=== PATIENT | female | born 1970 | race Caucasian/White ===

== ENCOUNTER 2019-03-05 06:11 | Day surgery (SDC) | payer OTHER ==
[2019-03-05] MEDS ORDERED: Dexamethasone 4 MG/ML 5 ML MDV IVPUSH ONE (06:12)
[2019-03-05] MEDS ORDERED: Midazolam 1 MG/ML 2 ML SDV IV ONE ×2 (06:12)
[2019-03-05] MEDS ORDERED: Ketorolac 30 MG/ML SDV IVPUSH ONE (06:12)
[2019-03-05] MEDS ORDERED: Ropivacaine 0.5% 5 MG/ML 20 ML SDV INJECT ONE (06:12)
[2019-03-05] MEDS ORDERED: fentaNYL 100 MCG/2 ML SDV IV ONE (06:12)
[2019-03-05] MEDS ORDERED: Ondansetron 4 MG/2 ML SDV IVPUSH ONE (06:12)
[2019-03-05] MEDS ORDERED: Propofol 200 MG/20 ML SDV IV ONE (06:12)
[2019-03-05] MEDS ORDERED: Lactated Ringers 1,000 ML IV ONE (06:12)
[2019-03-05] MEDS ORDERED: Gabapentin 300 MG Cap PO ONE (06:15)
[2019-03-05] MEDS ORDERED: Acetaminophen 500 MG Tab PO ONE (06:15)
[2019-03-05] MEDS ORDERED: Scopolamine 1.5 MG Transdermal Patch TRDERM ONE (06:15)
[2019-03-05] MEDS: Lactated Ringers 1,000 ML IV SCH ×2 (07:40→14:43)
[2019-03-05] MEDS ORDERED: ceFAZolin 2 GM in Premix Bag 1 BAG IV ONE (08:00)
[2019-03-05] MEDS ORDERED: Ropivacaine 49.25 ML, Ketorolac 30 MG, EPINEPHrine 0.5 MG, cloNIDine 80 MCG, Sodium Chl... INJECT SCH ×5 (08:00)
[2019-03-05] MEDS ORDERED: Tranexamic Acid 3,000 MG, Sodium Chloride 0.9% 100 ML IRR ONE ×2 (09:00)
[2019-03-05] MEDS ORDERED: Docusate Sodium 100 MG Cap PO PRN (10:11)
[2019-03-05] MEDS ORDERED: Sennosides 8.6 MG Tab PO PRN (10:11)
[2019-03-05] MEDS ORDERED: Bisacodyl 5 MG Tab PO PRN (10:11)
[2019-03-05] MEDS ORDERED: Naloxone 0.4 MG/ML SDV IVPUSH PRN (10:11)
[2019-03-05] MEDS ORDERED: diphenhydrAMINE 50 MG/ML SDV IVPUSH PRN (10:11)
[2019-03-05] MEDS ORDERED: Zolpidem 5 MG Tab PO PRN (10:11)
[2019-03-05] MEDS ORDERED: Acetaminophen/oxyCODONE 325-5 MG Tab PO PRN (10:11)
[2019-03-05] MEDS ORDERED: traMADol 50 MG Tab PO PRN (10:11)
[2019-03-05] MEDS ORDERED: Magnesium Hydroxide 400 MG/5 ML Susp 30 ML Cup PO PRN (10:11)
[2019-03-05] MEDS ORDERED: Ondansetron 4 MG/2 ML SDV IVPUSH PRN (10:11)
[2019-03-05] MEDS ORDERED: ceFAZolin 1 GM Vial IVPUSH SCH (10:15)
--- NOTE | 2019-03-05 11:27 | OR ---
DATE OF OPERATION: 03/05/2019 SURGEON: Satnam Vazquez DO PREOPERATIVE DIAGNOSIS: Right knee primary osteoarthritis. POSTOPERATIVE DIAGNOSIS: Right knee primary osteoarthritis. PROCEDURE: Right knee total knee arthroplasty. WAGON DRIVER SALESPERSON: Ilana To NP. Nurse practitioner, Ilana To NP, played an essential role in assisting in this case, helping to position the patient, retract structures as needed, as well as suturing and cutting sutures as indicated. Her presence improved patient's safety and decreased operative time. ANESTHESIA: Saulo Bryant CRNA; spinal plus conscious sedation. FLUID: Lactated Ringer's solution. ESTIMATED BLOOD LOSS: 100 mL. COMPLICATIONS: None. SPECIMEN: None. DISCHARGE DISPOSITION: Stable to PACU. INSTRUMENTATION: DePuy Attune size 6 cemented tibial base fixed bearing baseplate; 38 mm polyethylene patella; size 6 right cemented cruciate-retaining femur; and size 6, 7 mm fixed bearing cruciate retaining polyethylene insert. HISTORY AND INDICATION FOR THE PROCEDURE: The patient was seen in the clinic. She had failed nonoperative treatment. Preoperative imaging confirmed the above- mentioned diagnosis. Risks and benefits of the procedure were explained to the patient. Informed consent was obtained. DETAILS OF PROCEDURE: The patient was seen preoperatively by myself with the Anesthesia staff in the preoperative holding area where the operative site was marked. She was brought to the operative suite by Anesthesia staff where spinal sedation plus conscious sedation was administered. Sterile Zhu was placed. A well-padded tourniquet was placed on the right thigh. The right lower extremity was then prepped and draped in a sterile manner. Time-out was called identifying the correct patient, correct procedure, and the correct site and that antibiotics had been within the appropriate period of time. The right lower extremity was exsanguinated. Tourniquet was raised to 250 mmHg and taken down at 1 hour during cementing. A midline incision was made 3 fingerbreadths proximal to the patella down to the level of the tibial tubercle. Bleeding was controlled with Bovie electrocautery. Gelpis were used for initial retraction. The medial parapatellar arthrotomy was then performed. A full synovectomy was performed using Bovie electrocautery. The medial and proximal tibia was visualized using Bovie electrocautery. The patella was then everted and held with a towel clip. Soft tissue around the patella was then removed. The knee was then flexed. A rongeur was placed under the patella for stability. Two free end-cuts were made in the patella. We then brought it back out into extension. This measured a 38 mm. I then drilled the 3 holes and placed my patella trial. At this point, I flexed the knee up again and then reamed the distal femur, placed my intramedullary guide for a 9 mm 5-degree valgus distal cut. This was pinned in place. The distal cut was made and the guide was then removed. The posterior condylar guide was then placed. This was just slightly under a 6. I pinned it in a 6 position. I then applied my Chamfer block and made my anterior, posterior, and Chamfer block cuts. I then removed this using an osteotome and Bovie electrocautery. We then anteriorized the tibia using a blunt Hohmann and 2 sharp Hohmann's to protect collateral ligaments. This was inline with the tibial tubercle in the 2nd metatarsal. This was used as stylus for a 3 mm proximal cut. This was pinned in place and then I did my proximal cut. I then used a laminar database architect and then took out some very small osteophytes posteriorly using a curved osteotome and then removed the remainder of the menisci bilaterally. I then again anteriorized my tibia and then placed a size 6 tibial baseplate, reamed it, and then used my keel punch to hold it in place. We then applied our femur. I did have to apply a block for my anterior extra Chamfer and then placed the femur in place and then made my lug holes and then placed my size 6, 5 mm tibial polyethylene trial. This provided good stability, but it was a little bit tight. I then re-cut the tibia and then this provided good range of motion. Then, I removed approximately another 7 mm and a half. After this had been accomplished, we removed all our components, copiously irrigated with saline, and then cemented my components in place with a size 6, 5 mm polyethylene trial. I then allowed the cement to dry. The tourniquet was let down at 60 minutes. I then copiously irrigated with saline and then removed some extra cement that was left around the joint and then visualized both posterior compartments. I then ranged this. I felt that there was a little bit of instability in mid range flexion, so I trialed up to a 7 and settled on a 7, so I inserted my final size 6, 7 mm polyethylene tibial insert. This provided excellent stability throughout range of motion. We then copiously irrigated again and then irrigated with Betadine-infused irrigation. I then closed my parapatellar arthrotomy with two #5 Ethibond interrupted sutures and then my banking assistant closed with #1 Stratafix and then irrigated again with Betadine-infused irrigation, then closed subcutaneously with #2 Stratafix, followed by skin elizabeth, followed by Betadine-soaked Adaptic, followed by sterile dressing and an Ricki wrap. The patient was allowed to awaken from conscious sedation and then taken to the PACU in stable condition for an adductor block. /[id number] 1120 BS/FRANCIS
--- NOTE | 2019-03-05 11:36 | PCM.SN ---
- Free Text/Narrative Note: ANESTHESIA ACUTE PAIN SERVICE Date: 03/05/2019 Time: 1043 to 1047 Preoperative Dx: Osteoarthritis Right Knee with Severe Pain Postoperative Rx: Right Total Knee Arthroplasty The surgeon requests a postoperative peripheral nerve block for postoperative pain control. I discussed with the patient and her boyfriend about doing a right leg Adductor Canal Nerve Block with Ultrasound [U/S] Guidance. Risks and benefits discussed including block failure or chronic needle insertion site pain. All their questions were answered fully. She wishes to proceed with the nerve block. A consent was signed. Procedure: Right Adductor Canal Nerve Block with U/S Guidance. Monitors: NIBP, ECG and Spo2 monitoring [see nursing notes for vital signs]. Sedation: She is having moderate panic attack requesting treatment. I "can't feel my legs" and "I am not in control". Versed 2 mg's given totally with good results. She was awake and orientated throughout this procedure. She is supine with her right leg in a Frog leg position. A preprocedure U/S scan was done locating the right Femoral Artery and the Sartorius Muscle above. The area was prepped with a Chlora-Prep swab X 1 and allowed to dry. Under direct U/S visualization, I inserted a 20 Ga. 4 In. Stimuplex Ultra 360 Echogenic Needle and advanced it to a very good position next to the artery. Again under direct U/S visualization, a total of 20 ml's of .5% Naropin in divided doses were given with frequent aspirations done for blood. The Sartorius Muscle dis tent up nicely. The patient had no complaints or local toxicity Sx noted. Documentation: Please see the images taken in the Pac system located in Radiology. Thank you for allowing anesthesia to help this patient. MESFIN Mitchell CRNA
[2019-03-05] MEDS: Acetaminophen 650 MG Tab.ER PO SCH ×3 (14:42→21:27)
--- NOTE | 2019-03-05 15:04 | CR ---
INDICATION: Postop TKA. RIGHT KNEE: Three images of the right knee were obtained in frontal and lateral projections post total knee arthroplasty, 03/05/19, and compared with preop study of 11/30/18, showing interval total knee arthroplasty with satisfactory position and alignment and no definite complicating process. Immediate postop study shows fluid and air fluid levels in the knee joint with overlying skin elizabeth present. A definite complicating process is not seen. MTDD
[2019-03-05] MEDS: ceFAZolin 2 GM in Premix Bag 1 BAG IV SCH (16:45)
[2019-03-05] MEDS: oxyCODONE 5 MG Tab PO PRN ×2 (16:49→21:26)
[2019-03-05] MEDS: Ketorolac 30 MG/ML SDV IVPUSH SCH (17:48)
[2019-03-05] MEDS: Gabapentin 300 MG Cap PO SCH ×2 (18:35→21:26)
[2019-03-05] MEDS: Sodium Chloride 0.9% 10 ML Syringe FLUSH PRN (20:15)
[2019-03-06] MEDS: ceFAZolin 2 GM in Premix Bag 1 BAG IV SCH ×2
[2019-03-06] MEDS: Sodium Chloride 0.9% 10 ML Syringe FLUSH PRN (00:35)
[2019-03-06] MEDS: Ketorolac 30 MG/ML SDV IVPUSH SCH (02:43)
[2019-03-06] MEDS: oxyCODONE 5 MG Tab PO PRN (02:49)
[2019-03-06] MEDS ORDERED: Pantoprazole 40 MG Tab.CR PO SCH (06:00)
[2019-03-06] MEDS: Acetaminophen 650 MG Tab.ER PO SCH ×2 (08:02→12:05)
--- NOTE | 2019-03-06 08:33 | US ---
INDICATION: Right adductor nerve block. ULTRASOUND RFA GUIDANCE: Multiple ultrasonic images were obtained 03/05/19 for guidance for RFA right adductor nerve block. [facility]
[2019-03-06] MEDS ORDERED: Hydrochlorothiazide 25 MG Tab PO SCH (09:00)
[2019-03-06] MEDS ORDERED: Aspirin 325 MG Tab.EC PO SCH (09:00)
[2019-03-06] MEDS ORDERED: Hydrochlorothiazide/Lisinopril 12.5-20 MG Tab PO SCH (09:00)
--- NOTE | 2019-03-06 09:37 | PCM.DCSUM1 ---
Discharge Summary - Hospital Course HPI Initial Comments: 48 yo female right knee primary oa Diagnosis: Stroke: No - Discharge Data Discharge Date: 03/06/19 Discharge Disposition: Home, Self-Care 01 Condition: Good - Patient Summary/Data Operative Procedure(s) Performed: r tka Complications: none Consults: Consultations 03/05/19 10:11 Respiratory Care Assess and Treatment [CONS] Routine Comment: Physician Instructions: Post-op Pneumonia Prevention 03/05/19 15:00 OT Evaluation and Treatment [CONS] Routine Please Evaluate and Treat. OT Reason for Consult: Strengthening This query below is only for informational purposes and is not editable. Admission Diagnosis/Problem: Osteoarthritis of right knee PT Evaluation and Treatment [CONS] Routine Please Evaluate and Treat. PT Reason for Consult: Strengthening This query below is only for informational purposes and is not editable. Admission Diagnosis/Problem: Osteoarthritis of right knee Recommended Follow-up Testing/Procedures: March 13 f/u in Clinic with Dr. Vazquez to discuss left medial compartment knee arthroplasty - Patient Instructions Diet: Usual Diet as Tolerated Activity: Apply Ice, As Tolerated, Full Weight Bearing, No Strenuous Activities Driving: Do Not Drive Showering/Bathing: May Shower Showering/Bathing, Other: may shower with or without dressing, cover at all other times Wound/Incision Care: Keep Operative Site/Wound Site Clean and Dry, Change Dressing Daily Notify Provider of: Fever, Increased Pain, Swelling and Redness, Drainage, Nausea and/or Vomiting - Discharge Plan *PRESCRIPTION DRUG MONITORING PROGRAM REVIEWED*: Yes *COPY OF PRESCRIPTION DRUG MONITORING REPORT IN PATIENT MARCY: No Prescriptions/Med Rec: Acetaminophen [Tylenol Arthritis Pain] 650 mg PO QID #56 tab.er Acetaminophen/oxyCODONE [Percocet 325-5 MG] 1 tab PO Q6H PRN #56 tablet PRN Reason: Pain (Moderate 4-6) Aspirin [Ecotrin EC] 325 mg PO DAILY #21 tab.ec Gabapentin [Neurontin] 300 mg PO TID #42 cap traMADol [Ultram] 100 mg PO Q6H PRN #56 tablet PRN Reason: Pain (Mild 1-3) Home Medications: Home Meds Glucos Sul 2Kcl/MSM/Chond/C/Mn [Glucosamine Chondroitin Cap] 1 cap PO DAILY 08/19 [History] Lisinopril/Hydrochlorothiazide [Zestoretic 20-12.5 mg Tablet] 1 tab PO DAILY 08/19 [History] Meloxicam [Mobic] 15 mg PO DAILY 03/01/19 [History] Ranitidine HCl [Zantac] 300 mg PO BEDTIME 03/01/19 [History] Soy Isofla/Blk Cohosh/Mag Bark [Estroven 155 mg Capsule] 1 cap PO DAILY [History] Multivitamin with Minerals [Multiple Vitamin] 1 tab PO DAILY 03/05/19 [History] hydroCHLOROthiazide [Hydrochlorothiazide] 25 mg PO DAILY 03/05/19 [History] Acetaminophen [Tylenol Arthritis Pain] 650 mg PO QID #56 tab.er 03/06/19 [Rx] Acetaminophen/oxyCODONE [Percocet 325-5 MG] 1 tab PO Q6H PRN #56 tablet [Rx] Aspirin [Ecotrin EC] 325 mg PO DAILY #21 tab.ec 03/06/19 [Rx] Gabapentin [Neurontin] 300 mg PO TID #42 cap 03/06/19 [Rx] traMADol [Ultram] 100 mg PO Q6H PRN #56 tablet 03/06/19 [Rx] - Discharge Summary/Plan Comment DC Time >30 min.: No - General Info Functional Status: Reports: Pain Controlled, Tolerating Diet, Ambulating, Urinating - Review of Systems General: Reports: No Symptoms HEENT: Reports: No Symptoms Pulmonary: Reports: No Symptoms Cardiovascular: Reports: No Symptoms Gastrointestinal: Reports: No Symptoms Genitourinary: Reports: No Symptoms Musculoskeletal: Reports: Leg Pain, Joint Pain, Joint Swelling Skin: Reports: No Symptoms Neurological: Reports: No Symptoms Psychiatric: Reports: No Symptoms - Patient Data Vitals - Most Recent: Last Vital Signs Temp 98.4 F 03/05/19 20:00 Pulse 71 03/05/19 20:00 Resp 16 03/05/19 20:00 BP 141/83 H 03/06/19 08:08 Pulse Ox 99 03/05/19 20:00 Weight - Most Recent: 183 lb I&O - Last 24 hours: Intake & Output 03/05/19 03/06/19 03/06/19 22:59 06:59 14:59 Intake Total 2198 50 Output Total 925 Balance 1273 50 Lab Results - Last 24 hrs: Laboratory Results - last 24 hr 08/06/19 08/06/19 Range/Units 06:20 06:20 WBC 15.8 H (4.5-12.0) X10-3/uL RBC 3.37 (3.23-5.20) x10(6)uL Hgb 11.9 (11.5-15.5) g/dL Hct 34.4 (30.0-51.3) % MCV 102.2 H (80-96) fL MCH 35.3 H (27.7-33.6) pg MCHC 34.6 (32.2-35.4) g/dL RDW 12.8 (11.5-15.5) % Plt Count 147 (125-369) X10(3)uL MPV 9.7 (7.4-10.4) fL Add Manual Diff Yes Neutrophils % (Manual) 85 H (46-82) % Lymphocytes % (Manual) 12 L (13-37) % Monocytes % (Manual) 3 L (4-12) % Macrocytosis Few Sodium 139 (135-145) mmol/L Potassium 4.2 (3.5-5.3) mmol/L Chloride 103 (100-110) mmol/L Carbon Dioxide 29 (21-32) mmol/L BUN 13 (7-18) mg/dL Creatinine 0.7 (0.55-1.02) mg/dL Est Cr Clr Drug Dosing 96.99 mL/min Estimated GFR (MDRD) > 60 (>60) BUN/Creatinine Ratio 18.6 (9-20) Glucose 116 (80-116) mg/dL Calcium 8.6 (8.6-10.2) mg/dL Total Bilirubin 0.4 (0.1-1.3) mg/dL AST 63 H (5-25) IU/L ALT 89 H (12-36) U/L Alkaline Phosphatase 146 H (56-112) IU/L Total Protein 6.3 (6.0-8.0) g/dL Albumin 3.0 L (3.5-5.2) g/dL Globulin 3.3 g/dL Albumin/Globulin Ratio 0.9 Med Orders - Current: Current Medications Acetaminophen (Tylenol Arthritis Pain) 650 mg PO QID [facility] Last Admin: 03/06/19 08:02 Dose: 650 mg Aspirin (Ecotrin) 325 mg PO DAILY [facility] Last Admin: 03/06/19 08:02 Dose: 325 mg Bisacodyl (Dulcolax) 10 mg PO DAILY PRN PRN Reason: Constipation Ropivacaine 49.25 ml/Ketorolac Tromethamine 30 mg/Epinephrine HCl 0.5 mg/ Clonidine HCl 80 mcg/ Sodium Chloride 48.45 ml 0 ml INJECT ASDIRECTED [facility] Last Admin: 03/05/19 09:22 Dose: 100 syringe Diphenhydramine HCl (Benadryl) 25 mg IVPUSH Q4H PRN PRN Reason: Itching Docusate Sodium (Colace) 100 mg PO BID PRN PRN Reason: Constipation Gabapentin (Neurontin) 300 mg PO QID [facility] Last Admin: 03/05/19 21:26 Dose: 300 mg Lisinopril/HCTZ (Lisinopril/Hctz 20-12.5 Mg) 1 tab PO DAILY [facility] Last Admin: 03/06/19 08:08 Dose: 1 tab Lactated Ringer's (Ringers, Lactated) 1,000 mls @ 125 mls/hr IV ASDIRECTED [facility] Last Admin: 03/05/19 14:43 Dose: 125 mls/hr Magnesium Hydroxide (Milk Of Magnesia) 30 ml PO BID PRN PRN Reason: Constipation Meperidine HCl (Meperitab) 50 mg PO QID [facility] Last Admin: 03/06/19 08:31 Dose: 50 mg Naloxone HCl (Narcan) 0.1 mg IVPUSH ONETIME PRN PRN Reason: Oversedation Ondansetron HCl (Zofran) 4 mg IVPUSH Q4H PRN PRN Reason: Nausea/Vomiting Oxycodone HCl (Oxycodone) 5 mg PO Q4H PRN PRN Reason: SEVERE PAIN Last Admin: 03/06/19 02:49 Dose: 5 mg Oxycodone/Acetaminophen (Percocet 325-5 Mg) 1 tab PO Q6H PRN PRN Reason: Pain (moderate 4-6) Last Admin: 03/06/19 08:00 Dose: 1 tab Pantoprazole Sodium (Protonix) 40 mg PO 0600 [facility] Last Admin: 03/06/19 05:53 Dose: 40 mg Senna (Senna) 8.6 mg PO BID PRN PRN Reason: Constipation Sodium Chloride (Saline Flush) 10 ml FLUSH ASDIRECTED PRN PRN Reason: Keep Vein Open Last Admin: 03/06/19 00:35 Dose: 10 ml Tramadol HCl (Ultram) 100 mg PO Q6H PRN PRN Reason: Pain (mild 1-3) Zolpidem Tartrate (Ambien) 5 mg PO BEDTIME PRN PRN Reason: Sleep Discontinued Medications Acetaminophen (Tylenol Extra Strength) 1,000 mg PO ONETIME ONE Stop: 03/05/19 06:16 Last Admin: 03/05/19 07:05 Dose: 1,000 mg Tranexamic Acid 3,000 mg/ (Sodium Chloride 100 ml) 0 mg IRR ONETIME ONE Stop: 03/05/19 09:01 Last Admin: 03/05/19 09:22 Dose: 100 syringe Gabapentin (Neurontin) 300 mg PO ONETIME ONE Stop: 03/05/19 06:16 Last Admin: 03/05/19 07:05 Dose: 300 mg Hydrochlorothiazide (Hydrochlorothiazide) 25 mg PO DAILY [facility] Cefazolin Sodium/Dextrose 2 gm (/ Premix) 50 mls @ 100 mls/hr IV ONETIME ONE Stop: 03/05/19 08:29 Last Admin: 03/05/19 07:56 Dose: 100 mls/hr Cefazolin Sodium/Dextrose 2 gm (/ Premix) 50 mls @ 100 mls/hr IV Q8H [facility] Stop: 03/06/19 00:29 Last Admin: 03/06/19 00:00 Dose: 100 mls/hr Ketorolac Tromethamine (Toradol) 30 mg IVPUSH Q8H [facility] Stop: 03/06/19 02:01 Last Admin: 03/06/19 02:43 Dose: 30 mg Scopolamine (Transderm-Scop) 1.5 mg TRDERM ONETIME ONE Stop: 03/05/19 06:16 Last Admin: 03/05/19 07:09 Dose: 1.5 mg - Exam General: Reports: Alert, Oriented, Cooperative, No Acute Distress HEENT: Reports: Pupils Equal, Pupils Reactive, EOMI, Mucous Membr. Moist/[place] Neck: Reports: Supple, Trachea Midline Lungs: Reports: Normal Respiratory Effort GI/Abdominal Exam: No Distention Extremities: Joint Swelling, Leg Pain, Limited Range of Motion Skin: Reports: Warm, Dry, Intact Wound/Incisions: Reports: Healing Well, Dressing Dry and Intact, Drainage Neurological: Reports: No New Focal Deficit Psy/Mental Status: Reports: Alert, Normal Affect, Normal Mood Physical Findings Comments:: dressing had significant drainage. was reinforced. changed this morning. if decreased drainage with change to aquacell Discharge Operative/Procedures - Procedures Performed Operations: r tka LP Indication: CSF analysis Arterial Line Indication: hemodynamic monitoring Chest Tube Indication: pneumothorax Thoracentesis Indication: pleural effusion Paracentesis Indication: ascites
[2019-03-06] MEDS: Gabapentin 300 MG Cap PO SCH ×2 (09:43→12:09)
--- NOTE | 2019-03-06 15:42 | CR ---
INDICATION: Left knee pain. LEFT KNEE: Five views of the left knee were obtained 03/06/19 and were compared with 12/19/18. These included an upright view of both knees AP. A recent total knee arthroplasty is noted on the right, which appears to be unremarkable. Severe narrowing of the medial femorotibial joint space is noted on the left with mild hypertrophic degenerative changes at the intercondylar spines. Varus/valgus views obtained showed widening of the medial femorotibial joint space, compared with the upright view. Hypertrophic changes at the patellofemoral joint are mild with the joint space appearing to be slightly narrowed laterally. IMPRESSION: Osteoarthritis left knee with significant medial femorotibial joint space loss. MTDD
--- NOTE | 2019-03-12 10:52 | PCM.OPNOTE ---
- General Post-Op/Procedure Note Date of Surgery/Procedure: 03/05/19 Operative Procedure(s): r tka Pre Op Diagnosis: r knee primary oa Post-Op Diagnosis: Same Anesthesia Technique: Combo Spinal/Epidural, Regional Block Primary Surgeon: Satnam Vazquez Anesthesia Provider: Saulo Bryant Casing Crew Pusher: Ilana To EBL in mLs: 100 Complications: None Condition: Good
== END 2019-03-06 12:36 | disposition home or self-care (01) ==
LOC: FB.SDS 06:11 → FB.MS 11:03 → FB.SDS 03-06 12:36
PROVIDERS: ATTEND Orthopaedic Surgery
DX: M17.0 Bilateral primary osteoarthritis of knee (principal); I10 Essential (primary) hypertension; E78.5 Hyperlipidemia, unspecified; K21.9 Gastro-esophageal reflux disease without esophagitis; F17.210 Nicotine dependence, cigarettes, uncomplicated; Z88.5 Allergy status to narcotic agent; Z79.1 Long term (current) use of non-steroidal anti-inflammatories (NSAID); Z79.82 Long term (current) use of aspirin; Z79.899 Other long term (current) drug therapy
CPT/HCPCS: 27447; 36415; 73560; 73564; 80053; 85025; 86850; 86900; 86901; 94150; 97110; 97116; 97161; A9270; C1713; C1776; J0171; J0690; J0735; J1100; J1885; J2001; J2250; J2405; J2704; J2795; J3010; J7030; J7050; J7120

== ENCOUNTER 2019-04-23 06:49 | Day surgery (SDC) | payer OTHER ==
[~2019-04-23 06:49] MED LIST: Acetaminophen 500 MG Tab PO ONE; Gabapentin 300 MG Cap PO ONE; LORazepam 1 MG Tab PO ONE; Lactated Ringers 1,000 ML IV SCH; Ropivacaine 49.25 ML, Ketorolac 30 MG, EPINEPHrine 0.5 MG, cloNIDine 80 MCG, Sodium Chl... INJECT SCH; Scopolamine 1.5 MG Transdermal Patch TOP ONE; Sodium Chloride 0.9% 10 ML Syringe FLUSH PRN; Tranexamic Acid 3,000 MG, Sodium Chloride 0.9% 100 ML IRR ONE; ceFAZolin 2 GM in Premix Bag 1 BAG IV ONE
[2019-04-23] MEDS ORDERED: Ketorolac 30 MG/ML SDV IVPUSH ONE (06:50)
[2019-04-23] MEDS ORDERED: Propofol 200 MG/20 ML SDV IV ONE (06:50)
[2019-04-23] MEDS ORDERED: Lidocaine 2% 100 MG/5 ML Syringe IVPUSH ONE (06:50)
[2019-04-23] MEDS ORDERED: Phenylephrine 1% 10 MG/ML SDV IV ONE (06:50)
[2019-04-23] MEDS ORDERED: Midazolam 1 MG/ML 2 ML SDV IV ONE (06:50)
[2019-04-23] MEDS ORDERED: ePHEDrine 50 MG/ML SDV IV ONE (06:50)
[2019-04-23] MEDS ORDERED: Ropivacaine 0.5% 5 MG/ML 20 ML SDV ONE (06:50)
[2019-04-23] MEDS ORDERED: Ondansetron 4 MG/2 ML SDV IVPUSH ONE (06:50)
[2019-04-23] MEDS ORDERED: Bupivacaine 0.75%/D5W 2 ML Amp INJECT ONE (06:50)
[2019-04-23] MEDS ORDERED: Dexamethasone 4 MG/ML 5 ML MDV IVPUSH ONE (06:50)
[2019-04-23] MEDS ORDERED: fentaNYL 100 MCG/2 ML SDV IV ONE (06:50)
[2019-04-23] MEDS ORDERED: Lactated Ringers 1,000 ML IV ONE (06:50)
[2019-04-23] MEDS ORDERED: Acetaminophen 500 MG Tab PO ONE (07:30)
[2019-04-23] MEDS ORDERED: Scopolamine 1.5 MG Transdermal Patch TOP ONE (07:30)
[2019-04-23] MEDS ORDERED: Tranexamic Acid 3,000 MG, Sodium Chloride 0.9% 100 ML IRR ONE ×4 (07:30→09:00)
[2019-04-23] MEDS ORDERED: Lactated Ringers 1,000 ML IV SCH (07:30)
[2019-04-23] MEDS ORDERED: Gabapentin 300 MG Cap PO ONE (07:30)
[2019-04-23] MEDS ORDERED: Ropivacaine 49.25 ML, Ketorolac 30 MG, EPINEPHrine 0.5 MG, cloNIDine 80 MCG, Sodium Chl... INJECT SCH ×5 (07:30)
[2019-04-23] MEDS ORDERED: LORazepam 1 MG Tab PO ONE (07:30)
[2019-04-23] MEDS ORDERED: ceFAZolin 2 GM in Premix Bag 1 BAG IV ONE (08:45)
[2019-04-23] MEDS ORDERED: Magnesium Hydroxide 400 MG/5 ML Susp 30 ML Cup PO PRN (09:14)
[2019-04-23] MEDS ORDERED: Morphine 2 MG/ML Syringe IVPUSH PRN (09:14)
[2019-04-23] MEDS ORDERED: Zolpidem 5 MG Tab PO PRN (09:14)
[2019-04-23] MEDS ORDERED: diphenhydrAMINE 50 MG/ML SDV IVPUSH PRN (09:14)
[2019-04-23] MEDS ORDERED: Bisacodyl 5 MG Tab PO PRN (09:14)
[2019-04-23] MEDS ORDERED: traMADol 50 MG Tab PO PRN (09:14)
[2019-04-23] MEDS ORDERED: Naloxone 0.4 MG/ML SDV IVPUSH PRN (09:14)
[2019-04-23] MEDS ORDERED: Docusate Sodium 100 MG Cap PO PRN (09:14)
[2019-04-23] MEDS ORDERED: Ondansetron 4 MG/2 ML SDV IVPUSH PRN (09:14)
[2019-04-23] MEDS ORDERED: Sennosides 8.6 MG Tab PO PRN (09:14)
[2019-04-23] MEDS ORDERED: Vancomycin 1 GM SDV ONE (10:30)
--- NOTE | 2019-04-23 10:52 | PCM.OPNOTE ---
- General Post-Op/Procedure Note Date of Surgery/Procedure: 04/23/19 Operative Procedure(s): left tka Pre Op Diagnosis: left knee primary oa Post-Op Diagnosis: Same Anesthesia Technique: Epidural, Moderate Sedation Primary Surgeon: Satnam Vazquez Anesthesia Provider: Christiana Soto Internet Marketing Assistant: Ilana To EBL in mLs: 100 Complications: None Condition: Good
--- NOTE | 2019-04-23 12:45 | PCM.SN ---
- Free Text/Narrative Note: ANESTHESIA ACUTE PAIN SERVICE Date: 04/23/2019 Time: 1121 to 1128 Preprocedure Dx: Left Knee Primary Osteoarthritis Postprocedure Rx: Left TKA I was requested by Dr. Tremaine Vazquez D.O. for post-operative pain control for this patient. Procedure: Left Adductor Canal Nerve Block with Ultrasound [U/S] Guidance in PACU. Risks and benefits were discussed with the patient who is wanting this nerve block. All her questions were answered completely including block failure. She signed the consent. Monitors in PACU: NIBP, SpO2, ECG and nasal cannula O2. Please see the nursing notes for her vital signs. Sedation: sedated from the surgery but easily aroused. She slept throughout the this procedure but easily aroused and orientated when asked. She is supine with her left leg placed in a Frog-leg position. A preprocedure scan was done locating, under direct U/S visualization, the left Femoral Artery / Vein and the Sartorius Muscle easily. Using aseptic technique, the area was prepped widely with a Chlora-Prep Sponge X 1 and allowed to dry. With direct U/ S visualization, I inserted and advanced to a proper placement a 20 Ga. 4 In Stimuplex Ultra 360 Echogenic Needle. The injection of 20 ml's of .5% Naropin Plain was done with multiple aspirations for blood [negative]. I could see the local anesthetic spread with the tenting of the Sartorius muscle under U/S with no complaints by the patient or complications. She tolerated this well. Documentation: Please find the U/S images taken in Radiology's PAC System. Thank you for using this service. Saulo Bryant CRNA, MSN
[2019-04-23] MEDS: Gabapentin 300 MG Cap PO SCH ×2 (14:15→20:43)
[2019-04-23] MEDS: Acetaminophen 325 MG Tab PO SCH ×2 (14:18→20:42)
--- NOTE | 2019-04-23 15:38 | OR ---
DATE OF OPERATION: 04/23/2019 SURGEON: Satnam Vazquez DO PREOPERATIVE DIAGNOSIS: Left knee primary osteoarthritis. POSTOPERATIVE DIAGNOSIS: Left knee primary osteoarthritis. PROCEDURE: Left knee total knee arthroplasty. TOWER TRUCK DRIVER: Ilana To NP Nurse practitioner, Ilana To NP, played an essential role in assisting in this case, helping to position the patient, retract structures as needed, as well as suturing and cutting sutures as indicated. Her presence improved patient's safety and decreased operative time. ANESTHESIA: Christiana Soto CRNA. Spinal plus conscious sedation. FLUIDS: Lactated Ringer's solution. ESTIMATED BLOOD LOSS: 100 mL. COMPLICATIONS: None. SPECIMEN: None. DISCHARGE DISPOSITION: Stable to PACU. INSTRUMENTATION: DePuy Attune size 7 left cruciate-retaining femur, size 7, 7- mm fixed-bearing cruciate retaining poly, size 6 cemented tibia baseplate, and 41-mm polyethylene medialized patellar dome. HISTORY AND INDICATION FOR PROCEDURE: The patient is well known to me. We performed a right total knee on her previously. She was continuing to have pain in her left knee. Preoperative imaging confirmed the above-mentioned diagnosis. Risks and benefits of the procedure were explained to the patient. Informed consent was obtained. DETAILS OF PROCEDURE: The patient was seen preoperatively by myself and the Anesthesia staff in the preop holding area where the operative site was marked. She was brought to the operative suite by Anesthesia staff where spinal sedation was administered plus conscious sedation. The left lower extremity had a well- padded tourniquet placed on the thigh. A sterile Zhu catheter was placed. The left lower extremity was then prepped and draped in a sterile manner. Time- out was called identifying the correct patient, correct procedure, correct site, and the antibiotics had been within the appropriate period of time. The left lower extremity was exsanguinated. Tourniquet was raised to 250 mmHg for 47 minutes and let down after cementing. The midline incision was made from the tibial tubercle approximately 4 fingerbreadths proximal to the patella, carried down to the deep fascia. The medial parapatellar arthrotomy was then made with a 10 blade. I brought the knee out in extension and then performed a full synovectomy. There was extensive synovitis present throughout the joint. I did remove the anterior portion of the medial and lateral meniscus as much as I could. I then everted the patella with a towel clip and then flexed the knee. I then took off whatever soft tissue around the patella I could with Bovie electrocautery. I then made 2 perpendicular cuts freehand with a saw on the patella. This was to the appropriate depth. I then measured a 41 and then drilled the holes for the trial and then placed the trial. I then flexed the knee and then used a rongeur to expose the notch. I then reamed the notch approximately 1 cm anterior to its anterior point and then placed my intramedullary distal femoral guide at 9 mm distal cut, 5-degree valgus. I pinned this in place and then removed my intramedullary portion of the guide and then sawed the distal femur. I then removed my guide and pins and then removed the anterior cruciate ligament as well as some more meniscus, and then used my posterior condylar guide at 3-degree valgus on the femur to pin this in place. This measured a 7. I placed the 2 pins from my chamfer block. I removed the guide and then placed my chamfer block and protected the collateral ligaments with sharp Hohmanns and then made my anterior and posterior and chamfer cuts. I then removed my guide and then took off the remainder of the bone and cleaned up the edges. At that point in time, I then placed my medial and lateral Hohmanns and then used a blunt Hohmann to anteriorize the tibia. I then used my extramedullary tibial guide in line with the tibial tubercle in the 2nd metatarsal with a 3-mm guide that was placed in the medial compartment of the tibia. I pinned this in place with 3 pins and then made my saw cut protecting soft tissues with the Hohmanns. I then removed my guide and then removed the proximal tibial cut with Bovie electrocautery and a rongeur. I then cleaned this up with some saw cuts. I then at that point used my sulcus guide and then cleaned up the anterior portion from the patellar tracking mechanism with a file. I then removed that guide and then placed a laminar product promoter sales person with the knee in flexion and then removed the remainder of the medial and lateral meniscus. I removed some more soft tissue from the notch. I removed some more synovitis from the posterior capsule. I also noticed that this was extremely tight in the lateral compartment and then freed that up by just a few mm off the posterior condyle. No posterior osteophytes were felt at that time. I then anteriorized the tibia again with a blunt Hohmann and protected the lateral and medial collateral ligaments with sharp Hohmanns and then placed my tibia which was a size 6. This was inline with the tibial tubercle of the 2nd metatarsal. I then tamped my tower down and then reamed and then placed my tamp down to seat the tibial plate. I then removed my radiation oncology therapist and then placed my femoral trial. I drilled the lugs for that. I inserted a size 7, 5-mm which appeared a little loose, so I inserted a size 7, 7-mm which provided excellent stability throughout range of motion without hyperextension. I chose those components and then removed all the components, copiously irrigated with saline, and then dried it with a towel with a clean lap. We then cemented our final components in place. I kept the knee in extension and internal rotation by placing the handle of my mallet underneath the lateral aspect of the foot fajardo. I then let the components dry and took the tourniquet down to 47 minutes. We then removed my tibial size 7, 7-mm tibial insert which was a trial and I chose that component. I then removed any extra cement. I took the appropriate amount of time looking in the medial and lateral compartments for any extra cement. I took a little bit of extra cement off the femur and tibia using a small sharp osteotome. We copiously irrigated with saline several times. I did place tranexamic acid in the joint when I was letting the cement dry. I then irrigated again and then placed my final 7-mm, size 7 polyethylene tibial insert. This provided excellent stability throughout range of motion. I then irrigated with Betadine- infused irrigation. I did notice a bleeder on the medial side which was very slow. I cauterized this, it continued to bleed, so I placed FloSeal which stopped the oozing. I then irrigated again with Betadine-infused irrigation, suctioned that out, placed clean towels for the closure and then placed 0.5 g of vancomycin powder inside the joint. We then closed the arthrotomy with 2 figure- of-eight #5 Ethibonds proximal and distal to the patella and then closed with the #1 Ethibond in a watertight manner for the parapatellar arthrotomy. We then irrigated again with Betadine-infused irrigation. Then placed the other 0.5 g of vancomycin over the deep fascia and then closed with a #2 Stratafix. We then closed with skin elizabeth and then placed a sterile dressing. The patient was then allowed to awaken from conscious sedation and taken to the PACU in stable condition. /[id number] BS/MODL
[2019-04-23] MEDS: Acetaminophen/oxyCODONE 325-5 MG Tab PO PRN ×2 (17:13→21:02)
[2019-04-23] MEDS: ceFAZolin 2 GM in Premix Bag 1 BAG IV SCH (17:22)
[2019-04-23] MEDS: Ketorolac 30 MG/ML SDV IVPUSH SCH (18:26)
[2019-04-23] MEDS: Sodium Chloride 0.9% 10 ML Syringe FLUSH PRN (18:31)
[2019-04-23] MEDS: oxyCODONE 5 MG Tab PO PRN (23:39)
[2019-04-24] MEDS: ceFAZolin 2 GM in Premix Bag 1 BAG IV SCH (01:11)
[2019-04-24] MEDS: Sodium Chloride 0.9% 10 ML Syringe FLUSH PRN (01:16)
[2019-04-24] MEDS: Acetaminophen 325 MG Tab PO SCH ×2 (01:51→08:47)
[2019-04-24] MEDS: Ketorolac 30 MG/ML SDV IVPUSH SCH (01:59)
[2019-04-24] MEDS: Acetaminophen/oxyCODONE 325-5 MG Tab PO PRN ×2 (05:23→10:26)
[2019-04-24] MEDS: Diazepam 2 MG Tab PO PRN ×2 (05:24→12:56)
[2019-04-24] MEDS ORDERED: Pantoprazole 40 MG Tab.CR PO SCH (06:00)
[2019-04-24] MEDS: oxyCODONE 5 MG Tab PO PRN (08:48)
[2019-04-24] MEDS: Gabapentin 300 MG Cap PO SCH (08:53)
[2019-04-24] MEDS ORDERED: Aspirin 325 MG Tab.EC PO SCH (09:00)
[2019-04-24] MEDS ORDERED: Hydrochlorothiazide 25 MG Tab PO SCH (09:00)
--- NOTE | 2019-04-24 10:34 | PCM.DCSUM1 ---
Discharge Summary - Hospital Course HPI Initial Comments: 48 yo female left knee primary oa Diagnosis: Stroke: No - Discharge Data Discharge Date: 04/24/19 Discharge Disposition: Home, Self-Care 01 Condition: Good - Referral to Home Health Primary Care Physician: Jody Arellano NP - Discharge Diagnosis/Problem(s) (1) Primary osteoarthritis of left knee SNOMED Code(s): 128912393818876, [id number] ICD Code: M17.12 - UNILATERAL PRIMARY OSTEOARTHRITIS, LEFT KNEE Status: Acute Current Visit: Yes - Patient Summary/Data Operative Procedure(s) Performed: left tka Complications: none Consults: Consultations 04/23/19 09:14 Respiratory Care Assess and Treatment [CONS] Routine Comment: Physician Instructions: Post-op Pneumonia Prevention 04/23/19 15:00 OT Evaluation and Treatment [CONS] Routine Please Evaluate and Treat. OT Reason for Consult: Strengthening This query below is only for informational purposes and is not editable. Admission Diagnosis/Problem: Knee joint operation PT Evaluation and Treatment [CONS] Routine Please Evaluate and Treat. PT Reason for Consult: Strengthening This query below is only for informational purposes and is not editable. Admission Diagnosis/Problem: Knee joint operation - Patient Instructions Diet: Usual Diet as Tolerated Activity: Apply Ice, Full Weight Bearing, No Strenuous Activities Driving: May Drive Today Showering/Bathing: May Shower Wound/Incision Care: Keep Operative Site/Wound Site Clean and Dry Wound/Incision, Other: change dressing Tuesday, then daily dressing change Notify Provider of: Fever, Increased Pain, Swelling and Redness, Drainage, Nausea and/or Vomiting - Discharge Plan *PRESCRIPTION DRUG MONITORING PROGRAM REVIEWED*: Yes *COPY OF PRESCRIPTION DRUG MONITORING REPORT IN PATIENT MARCY: No Prescriptions/Med Rec: Acetaminophen [Tylenol] 325 mg PO Q6H 7 Days #28 tablet Acetaminophen/oxyCODONE [Percocet 325-5 MG] 1 tab PO Q4H PRN #42 tablet PRN Reason: Pain (Moderate 4-6) Aspirin [Ecotrin EC] 325 mg PO DAILY #21 tab.ec diazePAM [Valium] 2 mg PO TID #9 tablet hydrOXYzine pamoate [Vistaril] 25 mg PO Q8H PRN #21 cap PRN Reason: Pain oxyCODONE 5 mg PO Q6H PRN #20 tablet PRN Reason: moderate pain Home Medications: Home Meds Ranitidine HCl [Zantac] 300 mg PO DAILY 03/01/19 [History] Gabapentin [Neurontin] 300 mg PO TID 04/09/19 [History] Meloxicam [Mobic] 15 mg PO DAILY 04/09/19 [History] Acetaminophen/oxyCODONE [Percocet 325-5 MG] 1 tab PO Q4H PRN 04/23/19 [History] Multivitamin [Daily Shin] 1 tab PO DAILY 04/23/19 [History] Vitamin E 1,000 unit PO DAILY 04/23/19 [History] hydrOXYzine HCl [hydrOXYzine] 25 mg PO TID PRN 04/23/19 [History] hydroCHLOROthiazide [Hydrochlorothiazide] 25 mg PO DAILY 04/23/19 [History] Acetaminophen [Tylenol] 325 mg PO Q6H 7 Days #28 tablet 04/24/19 [Rx] Acetaminophen/oxyCODONE [Percocet 325-5 MG] 1 tab PO Q4H PRN #42 tablet [Rx] Aspirin [Ecotrin EC] 325 mg PO DAILY #21 tab.ec 04/24/19 [Rx] diazePAM [Valium] 2 mg PO TID #9 tablet 04/24/19 [Rx] hydrOXYzine pamoate [Vistaril] 25 mg PO Q8H PRN #21 cap 04/24/19 [Rx] oxyCODONE 5 mg PO Q6H PRN #20 tablet 04/24/19 [Rx] Patient Handouts: Fall Prevention in Hospitals, Adult, Venous Thromboembolism Prevention, Total Knee Replacement, Care After, Klif-se-[id number] Referrals: Satnam Vazquez DO [Physician] - - Discharge Summary/Plan Comment DC Time >30 min.: No - General Info Date of Service: 04/24/19 Functional Status: Reports: Tolerating Diet, Ambulating, Urinating, Incentive Spirometry - Review of Systems General: Reports: No Symptoms HEENT: Reports: No Symptoms Pulmonary: Reports: No Symptoms Cardiovascular: Reports: No Symptoms Gastrointestinal: Reports: No Symptoms Genitourinary: Reports: No Symptoms Musculoskeletal: Reports: Joint Pain, Joint Swelling Skin: Reports: No Symptoms Neurological: Reports: No Symptoms Psychiatric: Reports: No Symptoms - Patient Data Vitals - Most Recent: Last Vital Signs Temp 97.6 F 04/24/19 07:30 Pulse 82 04/24/19 07:30 Resp 18 04/24/19 07:30 BP 133/81 04/24/19 07:30 Pulse Ox 97 04/24/19 07:30 Weight - Most Recent: 191 lb 9 oz I&O - Last 24 hours: Intake & Output 04/23/19 04/24/19 04/24/19 22:59 06:59 14:59 Intake Total 931 62 Output Total 800 550 300 Balance 131 -488 -300 Lab Results - Last 24 hrs: Laboratory Results - last 24 hr 04/24/19 04/24/19 Range/Units 06:10 06:10 WBC 13.5 H (4.5-12.0) X10-3/uL RBC 3.19 L (3.23-5.20) x10(6)uL Hgb 11.3 L (11.5-15.5) g/dL Hct 31.7 (30.0-51.3) % MCV 99.3 H (80-96) fL MCH 35.3 H (27.7-33.6) pg MCHC 35.5 H (32.2-35.4) g/dL RDW 12.7 (11.5-15.5) % Plt Count 159 (125-369) X10(3)uL MPV 9.4 (7.4-10.4) fL Neut % (Auto) 76.4 (46-82) % Lymph % (Auto) 18.3 (13-37) % [place] % (Auto) 5.1 (4-12) % Eos % (Auto) 0 L (1.0-5.0) % Baso % (Auto) 0 (0-2) % Neut # (Auto) 10.3 H (1.6-8.3) # Lymph # (Auto) 2.5 (0.6-5.0) # [place] # (Auto) 0.7 (0.0-1.3) # Eos # (Auto) 0.0 (0.0-0.8) # Baso # (Auto) 0.0 (0.0-0.2) # Sodium 136 (135-145) mmol/L Potassium 4.2 (3.5-5.3) mmol/L Chloride 101 (100-110) mmol/L Carbon Dioxide 27 (21-32) mmol/L BUN 16 (7-18) mg/dL Creatinine 0.6 (0.55-1.02) mg/dL Est Cr Clr Drug Dosing 113.16 mL/min Estimated GFR (MDRD) > 60 (>60) BUN/Creatinine Ratio 26.7 H (9-20) Glucose 109 (80-116) mg/dL Calcium 8.4 L (8.6-10.2) mg/dL Total Bilirubin 0.5 (0.1-1.3) mg/dL AST 48 H D (5-25) IU/L ALT 64 H D (12-36) U/L Alkaline Phosphatase 150 H (56-112) IU/L Total Protein 6.2 (6.0-8.0) g/dL Albumin 3.1 L (3.5-5.2) g/dL Globulin 3.1 g/dL Albumin/Globulin Ratio 1.0 Med Orders - Current: Current Medications Acetaminophen (Tylenol) 325 mg PO Q6H [facility] Last Admin: 04/24/19 08:47 Dose: 325 mg Aspirin (Ecotrin) 325 mg PO DAILY [facility] Last Admin: 04/24/19 08:48 Dose: 325 mg Bisacodyl (Dulcolax) 10 mg PO DAILY PRN PRN Reason: Constipation Ropivacaine 49.25 ml/Ketorolac Tromethamine 30 mg/Epinephrine HCl 0.5 mg/ Clonidine HCl 80 mcg/ Sodium Chloride 48.45 ml 0 ml INJECT ASDIRECTED [facility] Last Admin: 04/23/19 09:35 Dose: 100 syringe Diazepam (Valium) 2 mg PO QID PRN PRN Reason: Pain Last Admin: 04/24/19 05:24 Dose: 2 mg Diphenhydramine HCl (Benadryl) 25 mg IVPUSH Q4H PRN PRN Reason: Itching Docusate Sodium (Colace) 100 mg PO BID PRN PRN Reason: Constipation Gabapentin (Neurontin) 300 mg PO TID [facility] Last Admin: 04/24/19 08:53 Dose: 300 mg Hydrochlorothiazide (Hydrochlorothiazide) 25 mg PO DAILY [facility] Last Admin: 04/24/19 08:49 Dose: 25 mg Hydroxyzine Pamoate (Vistaril) 50 mg PO Q8H PRN PRN Reason: pain Last Admin: 04/23/19 23:40 Dose: 50 mg Lactated Ringer's (Ringers, Lactated) 1,000 mls @ 125 mls/hr IV ASDIRECTED [facility] Last Admin: 04/23/19 08:40 Dose: 125 mls/hr Magnesium Hydroxide (Milk Of Magnesia) 30 ml PO BID PRN PRN Reason: Constipation Morphine Sulfate (Morphine) 2 mg IVPUSH Q2H PRN PRN Reason: Breakthrough Pain Naloxone HCl (Narcan) 0.1 mg IVPUSH ONETIME PRN PRN Reason: Oversedation Ondansetron HCl (Zofran) 4 mg IVPUSH Q4H PRN PRN Reason: Nausea/Vomiting Oxycodone HCl (Oxycodone) 5 mg PO Q6H PRN PRN Reason: moderate pain Last Admin: 04/24/19 08:48 Dose: 5 mg Oxycodone/Acetaminophen (Percocet 325-5 Mg) 1 tab PO Q4H PRN PRN Reason: Pain (moderate 4-6) Last Admin: 04/24/19 10:26 Dose: 1 tab Pantoprazole Sodium (Protonix) 40 mg PO DAILY@0600 [facility] Last Admin: 04/24/19 05:08 Dose: 40 mg Senna (Senna) 8.6 mg PO BID PRN PRN Reason: Constipation Sodium Chloride (Saline Flush) 10 ml FLUSH ASDIRECTED PRN PRN Reason: Keep Vein Open Last Admin: 04/24/19 01:16 Dose: 10 ml Tramadol HCl (Ultram) 100 mg PO Q6H PRN PRN Reason: Pain (mild 1-3) Zolpidem Tartrate (Ambien) 5 mg PO BEDTIME PRN PRN Reason: Sleep Discontinued Medications Acetaminophen (Tylenol Extra Strength) 1,000 mg PO ONETIME ONE Stop: 04/10/19 10:01 Acetaminophen (Tylenol Extra Strength) 1,000 mg PO ONETIME ONE Stop: 04/23/19 07:31 Last Admin: 04/23/19 08:23 Dose: 1,000 mg Ropivacaine 49.25 ml/Ketorolac Tromethamine 30 mg/Epinephrine HCl 0.5 mg/ Clonidine HCl 80 mcg/ Sodium Chloride 48.45 ml 0 ml INJECT ASDIRECTED [facility] Tranexamic Acid 3,000 mg/ (Sodium Chloride 100 ml) 0 mg IRR ONETIME ONE Stop: 04/10/19 12:01 Tranexamic Acid 3,000 mg/ (Sodium Chloride 100 ml) 0 mg IRR ONETIME ONE Stop: 04/23/19 07:31 Tranexamic Acid 3,000 mg/ (Sodium Chloride 100 ml) 0 mg IRR ONETIME ONE Stop: 04/23/19 09:01 Last Admin: 04/23/19 09:35 Dose: 100 irr Gabapentin (Neurontin) 300 mg PO ONETIME ONE Stop: 04/10/19 10:01 Gabapentin (Neurontin) 300 mg PO ONETIME ONE Stop: 04/23/19 07:31 Last Admin: 04/23/19 08:23 Dose: 300 mg Cefazolin Sodium/Dextrose 2 gm (/ Premix) 50 mls @ 100 mls/hr IV ONETIME ONE Stop: 04/10/19 12:29 Lactated Ringer's (Ringers, Lactated) 1,000 mls @ 125 mls/hr IV ASDIRECTED [facility] Cefazolin Sodium/Dextrose 2 gm (/ Premix) 50 mls @ 100 mls/hr IV ONETIME ONE Stop: 04/23/19 09:14 Last Admin: 04/23/19 08:45 Dose: 100 mls/hr Cefazolin Sodium/Dextrose 2 gm (/ Premix) 50 mls @ 100 mls/hr IV Q8H [facility] Stop: 04/24/19 01:29 Last Admin: 04/24/19 01:11 Dose: 100 mls/hr Ketorolac Tromethamine (Toradol) 30 mg IVPUSH Q8H [facility] Stop: 04/24/19 03:01 Last Admin: 04/24/19 01:59 Dose: 30 mg Lorazepam (Ativan) 1 mg PO ONETIME ONE Stop: 04/10/19 10:31 Lorazepam (Ativan) 1 mg PO ONETIME ONE Stop: 04/23/19 07:31 Last Admin: 04/23/19 08:27 Dose: 1 mg Scopolamine (Transderm-Scop) 1.5 mg TOP ONETIME ONE Stop: 04/10/19 10:01 Scopolamine (Transderm-Scop) 1.5 mg TOP ONETIME ONE Stop: 04/23/19 07:31 Last Admin: 04/23/19 08:23 Dose: 1.5 mg Sodium Chloride (Saline Flush) 10 ml FLUSH ASDIRECTED PRN PRN Reason: Keep Vein Open Vancomycin HCl (Vancomycin) 1 gm .XX .STK-MED ONE Stop: 04/23/19 10:31 Last Admin: 04/23/19 10:30 Dose: 1 gm - Exam General: Reports: Alert, Oriented, Cooperative, Mild Distress HEENT: Reports: Pupils Equal, Pupils Reactive, EOMI, Mucous Membr. Moist/[place] Neck: Reports: Supple, Trachea Midline Lungs: Reports: Normal Respiratory Effort Extremities: Joint Swelling, Leg Pain, Limited Range of Motion, Increased Warmth Skin: Reports: Warm, Dry, Intact Wound/Incisions: Reports: Dressing Dry and Intact, Drainage Neurological: Reports: No New Focal Deficit Psy/Mental Status: Reports: Alert, Normal Affect, Normal Mood Discharge Operative/Procedures - Procedures Performed Operations: left tka
--- NOTE | 2019-04-30 10:57 | CR ---
INDICATION: Postop. LEFT KNEE: Frontal and lateral views of the left knee were obtained, 04/23/19, and compared with 03/06/19, revealing interval total knee arthroplasty in good position and alignment, with postsurgical changes and no specific complicating process identified. Metallic skin clips are noted anteriorly at the surgical site. Air is noted in the joint post surgically. IMPRESSION: Satisfactory appearance postop left TKA. TALITA
== END 2019-04-24 13:02 | disposition home or self-care (01) ==
LOC: FB.SDS 06:49 → FB.MS 12:10 → FB.SDS 04-24 13:02
PROVIDERS: ATTEND Orthopaedic Surgery
DX: M17.12 Unilateral primary osteoarthritis, left knee (principal); I10 Essential (primary) hypertension; I25.10 Atherosclerotic heart disease of native coronary artery without angina pectoris; F17.210 Nicotine dependence, cigarettes, uncomplicated; Z96.651 Presence of right artificial knee joint; Z79.899 Other long term (current) drug therapy; Z88.5 Allergy status to narcotic agent
CPT/HCPCS: 27447; 36415; 73560; 80053; 85025; 86850; 86900; 86901; 94150; 97161; 97165; 97530; 97535; A9270; J0171; J0690; J0735; J1100; J1885; J2001; J2250; J2370; J2405; J2704; J2795; J3010; J3370; J7030; J7050; J7120; C1713; C1776

== ENCOUNTER 2019-07-16 10:04 | Day surgery (SDC) | payer OTHER ==
[~2019-07-16 10:04] MED LIST changes: -Acetaminophen 500 MG Tab PO ONE; -Gabapentin 300 MG Cap PO ONE; -LORazepam 1 MG Tab PO ONE; -Ropivacaine 49.25 ML, Ketorolac 30 MG, EPINEPHrine 0.5 MG, cloNIDine 80 MCG, Sodium Chl... INJECT SCH; -Scopolamine 1.5 MG Transdermal Patch TOP ONE; -Tranexamic Acid 3,000 MG, Sodium Chloride 0.9% 100 ML IRR ONE; -ceFAZolin 2 GM in Premix Bag 1 BAG IV ONE
[2019-07-16] MEDS ORDERED: Propofol 200 MG/20 ML SDV IV ONE (10:05)
[2019-07-16] MEDS ORDERED: ceFAZolin 2 GM in Sodium Chloride 0.9% 100 ML IV ONE (12:00)
[2019-07-16] MEDS ORDERED: ceFAZolin 2 GM in Premix Bag 1 BAG IV ONE (12:00)
[2019-07-16] MEDS ORDERED: Bupivacaine 0.5%/EPINEPHrine 1:200,000 50 ML MDV INJECT ONE (12:18)
--- NOTE | 2019-07-16 12:48 | PCM.OPNOTE ---
- General Post-Op/Procedure Note Date of Surgery/Procedure: 07/16/19 Operative Procedure(s): irrigation and debridement left knee Findings: superficial infection skin and subcutaneous tissue Pre Op Diagnosis: superficial left knee infection Post-Op Diagnosis: Same Anesthesia Technique: Moderate Sedation Primary Surgeon: Satnam ARRIETA in mLs: 10 Condition: Good
[2019-07-16] MEDS ORDERED: Ketorolac 30 MG/ML SDV IVPUSH ONE (13:15)
--- NOTE | 2019-07-16 15:26 | OR ---
DATE OF OPERATION: 07/16/2019 SURGEON: Satnam Vazquez DO PREOPERATIVE DIAGNOSIS: Left knee superficial infection. POSTOPERATIVE DIAGNOSIS: Left knee superficial infection. PROCEDURE: Irrigation and debridement of left knee of skin and subcutaneous tissue. ANESTHESIA: Moderate sedation. FLUIDS: Lactated Ringer's solution. ESTIMATED BLOOD LOSS: 10 mL. COMPLICATIONS: None. SPECIMEN: None. DISCHARGE DISPOSITION: Stable to PACU. HISTORY AND INDICATIONS FOR THE PROCEDURE: The patient is well known to me. We previously performed a left total knee about 6 to 8 weeks ago. She had an occasionally draining wound superficially, which failed nonoperative treatment. 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 Risks and benefits of the procedure were explained to the patient. Informed consent was obtained. DETAILS OF PROCEDURE: The patient was seen preoperatively by myself and the Anesthesia staff in the preoperative holding area where the operative site was marked. She was brought to the operative suite by the Anesthesia staff where moderate sedation was administered. The left lower extremity was then prepped and draped in a sterile manner. Time-out was called identifying the correct patient, correct procedure, the correct site, and that antibiotics had begun within appropriate time. An incision was made along the inferior half of the incision where the 2 draining sites were. I cut out the skin where those sites were present, removing about 2 to 3 mm on that edge. For the most part, this was very unimpressive. I did not find any deep pockets of infection. Everything looked good. I did remove some Ethibond suture on the lateral side. No StrataFix was encountered. I ran 3 L of gentamicin-infused irrigation through the wound. [facility] through, I packed this with iodine and let it sit for about 2 minutes and then continued the irrigation. I also curetted it out. After we had performed the iodine midway, I had myself and my ortho assistant depart tools in our hands and the iodine to prevent any contamination. I then placed 2-0 nylon sutures in a horizontal mattress fashion and then placed Betadine-soaked Adaptic, fluffs, and Medipore tape across the wound. The patient was allowed to awaken from moderate sedation and then taken to the PACU in stable condition. /[id number] BS/MODL
== END 2019-07-16 13:44 | disposition home or self-care (01) ==
LOC: FB.SDS 10:04
PROVIDERS: ATTEND Orthopaedic Surgery
DX: L08.9 Local infection of the skin and subcutaneous tissue, unspecified (principal); I10 Essential (primary) hypertension; K21.9 Gastro-esophageal reflux disease without esophagitis; F32.9 Major depressive disorder, single episode, unspecified; F17.210 Nicotine dependence, cigarettes, uncomplicated; Z79.82 Long term (current) use of aspirin; Z88.5 Allergy status to narcotic agent; Z79.899 Other long term (current) drug therapy
CPT/HCPCS: J0690; J1885; J2704; J3490; J7120